=== PATIENT | female | born 1995 | race Caucasian/White ===

== ENCOUNTER 2019-11-30 03:53 | Inpatient (IN) | payer BC ==
[~2019-11-30 03:53] MED LIST: Bupivacaine 0.25% 10 ML SDV ONE
[2019-11-30] MEDS ORDERED: Calcium Carbonate 500 MG Tab.Chew PO PRN (05:42)
[2019-11-30] MEDS ORDERED: Lidocaine 1% 50 ML MDV INJECT ONE (05:42)
[2019-11-30] MEDS ORDERED: Ondansetron 4 MG/2 ML SDV IVPUSH PRN (05:42)
[2019-11-30] MEDS ORDERED: Sodium Chloride 0.9% 10 ML Syringe FLUSH PRN (05:42)
[2019-11-30] MEDS ORDERED: Acetaminophen 325 MG Tab PO PRN (05:42)
[2019-11-30] MEDS ORDERED: Oxytocin/Lactated Ringers 10 UNIT/1,000 ML BAG IV SCH ×2 (05:45)
[2019-11-30] MEDS ORDERED: Clindamycin Phosphate 900 MG in Sodium Chloride 0.9% 100 ML IV SCH (06:00)
[2019-11-30] MEDS ORDERED: Clindamycin Phosphate 900 MG/6 ML SDV ONE (06:18)
[2019-11-30] MEDS ORDERED: Sodium Chloride 0.9% 100 ML ONE (06:19)
[2019-11-30] MEDS ORDERED: Clindamycin Phosphate in D5W 900 MG in Premix Bag 1 BAG IV SCH ×2 (07:30)
[2019-11-30] MEDS: Lactated Ringers 1,000 ML IV SCH ×5 (07:41→18:00)
[2019-11-30] MEDS ORDERED: diphenhydrAMINE 50 MG/ML SDV IVPUSH PRN (07:51)
[2019-11-30] MEDS ORDERED: ePHEDrine 50 MG/ML SDV IVPUSH PRN (07:51)
--- NOTE | 2019-11-30 08:03 | PCM.PREANE ---
Preanesthetic Assessment - Procedure Proposed Procedure: raciel - Anesthesia/Transfusion/Family Hx Anesthesia History: Prior Anesthesia Reaction Type of Anesthesia Reaction: Excessive Nausea/Vomiting Family History of Anesthesia Reaction: No Transfusion History: No Prior Transfusion(s) - Review of Systems General: No Symptoms Pulmonary: Other (had cold symptoms started 2 weeks ago and now is getting over it) Cardiovascular: No Symptoms Gastrointestinal: No Symptoms Neurological: No Symptoms Other: Reports: Sinus Problem (getting over a cold) - Physical Assessment Vital Signs: Last Vital Signs Temp 98.3 F 11/30/19 04:25 Pulse 90 11/30/19 04:25 Resp 16 11/30/19 04:25 BP 133/88 11/30/19 04:25 Pulse Ox 98 11/30/19 04:25 Height: 5 ft 5 in Weight: 98.43 kg ASA Class: 2 Mental Status: Alert & Oriented x3 Airway Class: Mallampati = 2 Dentition: Reports: Normal Dentition Thyro-Mental Finger Breadths: 3 Mouth Opening Finger Breadths: 3 ROM/Head Extension: Full Lungs: Clear to Auscultation, Normal Respiratory Effort Cardiovascular: Regular Rate, Regular Rhythm - Lab Values: Laboratory Last Values WBC 9.84 K/mm3 (3.98-10.04) 11/30/19 05:56 RBC 4.07 M/mm3 (3.98-5.22) 11/30/19 05:56 Hgb 12.1 gm/dl (11.2-15.7) 11/30/19 05:56 Hct 37.1 % (34.1-44.9) 11/30/19 05:56 MCV 91.2 fl (79.4-94.8) 11/30/19 05:56 MCH 29.7 pg (25.6-32.2) 11/30/19 05:56 MCHC 32.6 g/dl (32.2-35.5) 11/30/19 05:56 RDW Std Deviation 43.4 fL (36.4-46.3) 11/30/19 05:56 Plt Count 280 K/mm3 (182-369) 11/30/19 05:56 MPV 11.0 fl (9.4-12.3) 11/30/19 05:56 Neut % (Auto) 76.6 % (34.0-71.1) H 11/30/19 05:56 Lymph % (Auto) 15.3 % (19.3-51.7) L 11/30/19 05:56 [place] % (Auto) 6.8 % (4.7-12.5) 11/30/19 05:56 Eos % (Auto) 0.6 (0.7-5.8) L 11/30/19 05:56 Baso % (Auto) 0.2 % (0.1-1.2) 11/30/19 05:56 Neut # (Auto) 7.53 K/mm3 (1.56-6.13) H 11/30/19 05:56 Lymph # (Auto) 1.51 K/mm3 (1.18-3.74) 11/30/19 05:56 [place] # (Auto) 0.67 K/mm3 (0.24-0.36) H 11/30/19 05:56 Eos # (Auto) 0.06 K/mm3 (0.04-0.36) 11/30/19 05:56 Baso # (Auto) 0.02 K/mm3 (0.01-0.08) 11/30/19 05:56 - Allergies Allergies/Adverse Reactions: Allergies Allergy/AdvReac Type Severity Reaction Status Date / Time Penicillins Allergy Rash Verified 11/30/19 04:26 - Blood Blood Available: No - Acknowledgements Anesthesia Type Planned: Epidural Pt an Appropriate Candidate for the Planned Anesthesia: Yes Alternatives and Risks of Anesthesia Discussed w Pt/Guardian: Yes Pt/Guardian Understands and Agrees with Anesthesia Plan: Yes PreAnesthesia Questionnaire Cardiovascular History: Reports: None Respiratory History: Reports: None Gastrointestinal History: Reports: GERD (with preg) 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 (39 5 weeks) Para: 0 Musculoskeletal History: Reports: None Psychiatric History: Reports: None Endocrine/Metabolic History: Reports: Obesity/BMI 30+ Oncologic (Cancer) History: Reports: None - Past Surgical History HEENT Surgical History: Reports: Oral Surgery - SUBSTANCE USE Smoking Status *Q: Never Smoker Tobacco Use Within Last Twelve Months: No Second Hand Smoke Exposure: Yes Days Per Week of Alcohol Use: 0 Recreational Drug Use History: No - HOME MEDS Home Medications: Home Meds Cholecalciferol (Vitamin D3) [Vitamin D3] 1,000 unit PO DAILY 11/30/19 [History] Loratadine [Claritin] 10 mg PO DAILY 11/30/19 [History] [place]-3/DHA/Epa/Fish Oil [[place] 3 500 Softgel] 1 each PO DAILY 11/30/19 [History ] No122/Iron/Folic Acid [ Multi Tablet] 1 each PO DAILY 11/30/19 [History] Vitamin B Complex 1 each PO DAILY 11/30/19 [History] - CURRENT (IN HOUSE) MEDS Current Meds: Current Medications Acetaminophen (Tylenol) 650 mg PO Q4H PRN PRN Reason: Pain (Mild 1-3) and fever Calcium Carbonate/Glycine (Tums) 1,000 mg PO Q2H PRN PRN Reason: Indigestion Diphenhydramine HCl (Benadryl) 25 mg IVPUSH Q6H PRN PRN Reason: pruritis Ephedrine Sulfate (Ephedrine Sulfate) 5 mg IVPUSH ASDIRECTED PRN PRN Reason: Hypotension Fentanyl (Sublimaze) 100 mcg EPIDUR Q3H PRN PRN Reason: Pain Fentanyl/Bupivacaine HCl (Fentanyl/Bupivacaine/Ns 2 Mcg-0.125% 100 Ml) 100 ml EPIDUR ASDIRECTED PRN PRN Reason: Pain Lactated Ringer's (Ringers, Lactated) 1,000 mls @ 100 mls/hr IV ASDIRECTED MARCIO Last Admin: 11/30/19 07:41 Dose: 100 mls/hr Oxytocin/Lactated Ringer's (Pitocin In Lr 10 Units/1,000 Ml) 10 unit in 1,000 mls @ 12 mls/hr IV TITRATE MARCIO; Protocol Oxytocin/Lactated Ringer's (Pitocin In Lr 10 Units/1,000 Ml) 10 unit in 1,000 mls @ 500 mls/hr IV .CONTINUOUS MARCIO Clindamycin Phosphate 900 mg/ (Premix) 50 mls @ 100 mls/hr IV Q8H MARCIO Ondansetron HCl (Zofran) 4 mg IVPUSH Q4H PRN PRN Reason: Nausea/Vomiting Sodium Chloride (Saline Flush) 10 ml FLUSH ASDIRECTED PRN PRN Reason: Keep Vein Open Discontinued Medications Clindamycin Phosphate (Cleocin) Confirm Administered Dose 900 mg .ROUTE .STK- MED ONE Stop: 11/30/19 06:19 Last Admin: 11/30/19 06:28 Dose: 900 mg Clindamycin Phosphate 900 mg/ (Sodium Chloride) 106 mls @ 100 mls/hr IV Q8H MARCIO Sodium Chloride (Normal Saline) Confirm Administered Dose 100 mls @ as directed .ROUTE .STK-MED ONE Stop: 11/30/19 06:20 Last Admin: 11/30/19 06:28 Dose: 100 mls/hr Clindamycin Phosphate 900 mg/ (Premix) 50 mls @ 100 mls/hr IV Q8H MARCIO Lidocaine HCl (Xylocaine 1%) 20 ml INJECT ONETIME ONE Stop: 11/30/19 05:43
--- NOTE | 2019-11-30 08:42 | PCM.LDHP ---
L&D History of Present Illness - General Date of Service: 11/30/19 Admit Problem/Dx: Patient Status Order with Admit Dx/Problem 11/30/19 04:26 Patient Status [ADT] Routine 11/30/19 05:43 Patient Status [ADT] Routine Admission Diagnosis/Problem Admission Diagnosis/Problem Labor established 11/30/19 08:32 There is a 24-year-old 1 para 0 white female who is presently at 39-7 weeks gestational age with an SHERIE of 11/24/2019 was admitted in early active labor with cervical change. She has dilated from closed cervix, 80% effaced soft , posterior and -2 station to 2 cm, 85% effaced, -2 station, soft. Source of Information: Patient History Limitations: Reports: No Limitations - History of Present Illness Introduction:: There is a 24-year-old 1 para 0 white female who is presently at 39-7 weeks gestational age with an SHERIE of 11/24/2019 was admitted in early active labor with cervical change.Patient seen in clinic yesterday at which time she was reporting no contractions but good activity. During the course of the night she began enmanuel and at present time is enmanuel every 3-5 minutes , moderate intensity. She is undergone cervical change as described above. She is evaluated and artificial rupture membranes is undertaken with resultant clear amniotic fluid. heart tones are reassuring and reactive NST is noted. 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 SHERIE of 12/02/2019 was returned by a last menstrual period which started on 02/25/2019 is supported by an ultrasound on 07/19/2019. Patient had menarche at age 11. Cycles were regular every 30 days. She is not using any control to time conception. Patient's first visit occurred on 06/14/2019 and was supportive of her SHERIE. She has had regular care throughout this . Her weight gain has been from 197-217 pounds for a 20 pound increase. She is group B strep positive but has a penicillin allergy and therefore we group B strep was evaluated and found to be sensitive to clindamycin which has been somewhat ordered and given in a prophylactic dosage. She had a colposcopy on 07/19/2019 which is unremarkable. This was done for Pap smear which showed ASCUS with high risk HPV. She plans to breast-feed. She wishes to have an epidural for labor analgesia. She underwent her diphtheria pertussis and tetanus immunization on . She had her flu shot on 06/28/2019. She has had her hepatitis be immunization in 1993. Her HPV immunizations occurred in 2009. Her meningococcal immunizations occurred in 2011. Laboratory testing in : Blood is positive with negative and by screen. Platelets at first visit were 332,000. Pap smear showed ASCUS changes with high risk HPV. Colposcopy was done and was unremarkable. She is rubella immune. RPR is nonreactive. Urine culture was unremarkable. Hepatitis B surface antigen and HIV assays were both negative. Chlamydia and gonorrhea assays were both negative. TSH was performed on 04/10/2019 and was normal at 1.815 mg/L. Her depression screening on 04/10/2090 was negative. Second trimester testing showed a hemoglobin of 11.8 which is mildly decreased. At that time she is advised to get on an additional iron in the form of ferrous sulfate. Platelets were 244, 000. One-hour GTT was elevated at 143. Her three-hour GTT was normal with values as follows: Fasting blood her 89. One-hour glucose 127. 2 hour glucose was 113 and 3 hour glucose was 104. Group B strep screen positive as above. Is sensitive to clindamycin as patient has a penicillin allergy. Allergies: Penicillin which causes a rash Medications: 1. vitamins 1 daily 2. Vitamin D tablets 1000 units daily 3. Vitamin B complex tabs 1 tablet/capsule daily 4. Cecil-3 1000 mg daily 5. 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 Has had a history of miscarriage and tubal . Father is alive and on medication for high blood pressure. Brother is from a developmental abnormality that causes him to live for 4 hours after . Sister is alive and well. Maternal grandmother is alive at age 81. Maternal grandfather is secondary to multiple cancers involving bone, esophagus and stomach. Internal grandmother secondary to cervical cancer and paternal grandfather is secondary to heart disease. There is no family history otherwise of cancer. No blood clotting or bleeding abnormalities anesthesia problems noted in the family. Review of systems: In general patient has no complaints. She is having contractions which are mild to moderate in intensity. Skin: Negative Lungs: No infectious symptoms or shortness of breath Cardiovascular: No chest pain or exercise intolerance Breasts: Changes associated with .. GI: Negative : Body habitus changes associated with . Musculoskeletal: Negative Neurological: Negative In general the patient is well-developed, well-nourished, pleasant female of stated age in no acute distress. Last evaluation in clinic her blood pressure is 110/70. Weight was 217 which is increased from her pregravid weight of 197. Height is 5 feet 5 inches. Prepregnancy body mass index is 32.3. Skin is warm dry without lesions. HEENT, neck and back within normal limits. Lungs are clear with good breath sounds in all lung hernandes. Cardiovascular exam shows regular and rhythm without murmurs. Breast exam is not performed at this time. Patient does plan to breast-feed. Abdomen is gravid with a fundal height of 38.5 cm. Baby in vertex presentation. Genital per digital exam as above.. Extremities and neurological exam are grossly within normal limits. - Related Data Allergies/Adverse Reactions: Allergies Allergy/AdvReac Type Severity Reaction Status Date / Time Penicillins Allergy Rash Verified 11/30/19 04:26 Home Medications: Home Meds Cholecalciferol (Vitamin D3) [Vitamin D3] 1,000 unit PO DAILY 11/30/19 [History] Loratadine [Claritin] 10 mg PO DAILY 11/30/19 [History] [place]-3/DHA/Epa/Fish Oil [[place] 3 500 Softgel] 1 each PO DAILY 11/30/19 [History ] No122/Iron/Folic Acid [ Multi Tablet] 1 each PO DAILY 11/30/19 [History] Vitamin B Complex 1 each PO DAILY 11/30/19 [History] Past Medical History Cardiovascular History: Reports: None Respiratory History: Reports: None Gastrointestinal History: Reports: GERD (with preg) 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: Musculoskeletal History: Reports: None Psychiatric History: Reports: None Endocrine/Metabolic History: Reports: Obesity/BMI 30+ Oncologic (Cancer) History: Reports: None - Past Surgical History HEENT Surgical History: Reports: Oral Surgery Social & Family History - Family History Family Medical History: Noncontributory - Tobacco Use Smoking Status *Q: Never Smoker Second Hand Smoke Exposure: Yes - Alcohol Use Days Per Week of Alcohol Use: 0 - Recreational Drug Use Recreational Drug Use: No H&P Review of Systems - Review of Systems: Review Of Systems: See Below L&D Exam - Exam Exam: See Below - Vital Signs Vital Signs: Last Vital Signs Temp 36.8 C 11/30/19 04:25 Pulse 90 11/30/19 04:25 Resp 16 11/30/19 04:25 BP 133/88 11/30/19 04:25 Pulse Ox 98 11/30/19 04:25 Weight: 98.43 kg - Patient Data Lab Results Last 24 hrs: Laboratory Results - last 24 hr 11/30/19 Range/Units 05:56 WBC 9.84 (3.98-10.04) K/mm3 RBC 4.07 (3.98-5.22) M/mm3 Hgb 12.1 (11.2-15.7) gm/dl Hct 37.1 (34.1-44.9) % MCV 91.2 (79.4-94.8) fl MCH 29.7 (25.6-32.2) pg MCHC 32.6 (32.2-35.5) g/dl RDW Std Deviation 43.4 (36.4-46.3) fL Plt Count 280 (182-369) K/mm3 MPV 11.0 (9.4-12.3) fl Neut % (Auto) 76.6 H (34.0-71.1) % Lymph % (Auto) 15.3 L (19.3-51.7) % [place] % (Auto) 6.8 (4.7-12.5) % Eos % (Auto) 0.6 L (0.7-5.8) Baso % (Auto) 0.2 (0.1-1.2) % Neut # (Auto) 7.53 H (1.56-6.13) K/mm3 Lymph # (Auto) 1.51 (1.18-3.74) K/mm3 [place] # (Auto) 0.67 H (0.24-0.36) K/mm3 Eos # (Auto) 0.06 (0.04-0.36) K/mm3 Baso # (Auto) 0.02 (0.01-0.08) K/mm3 Result Diagrams: 11/30/19 05:56 Problem List Initiated/Reviewed/Updated: Yes Orders Last 24hrs: Active Orders 24 hr Category Date Time Status Patient Status [ADT] Routine ADT 11/30/19 05:43 Active Activity as Tolerated [RC] PFP Care 11/30/19 05:43 Active Antiembolic Devices [RC] .Routine Care 11/30/19 05:44 Active Communication Order [RC] ASDIRECTED Care 11/30/19 05:43 Active Heart Tones [RC] ASDIRECTED Care 11/30/19 05:43 Active Notify Provider [RC] ASDIRECTED Care 11/30/19 07:51 Active Notify Provider [RC] PFP Care 11/30/19 05:43 Active Notify Provider [RC] PRN Care 11/30/19 05:43 Active Peripheral IV Care [RC] Q2HR Care 11/30/19 05:43 Active Pump Management, Intrathecal [RC] ASDIRECTED Care 11/30/19 05:43 Active Urinary Catheter Assessment [RC] ASDIRECTED Care 11/30/19 05:42 Active VTE/DVT Education [RC] PER UNIT ROUTINE Care 11/30/19 05:44 Active Regular Diet [DIET] Diet 11/30/19 Breakfast Active BLOOD BANK HOLD SPECIMEN [BBK] Stat Lab 11/30/19 05:42 Ordered RAPID PLASMA REAGIN,RPR [CHEM] Stat Lab 11/30/19 05:56 Received Acetaminophen [Tylenol] Med 11/30/19 05:42 Active 650 mg PO Q4H PRN Bupivacaine/fentaNYL/NS [fentaNYL/Bupivacaine/NS 2 MCG- Med 11/30/19 07:51 Active 0.125% 100 ML] 100 ml EPIDUR ASDIRECTED PRN Calcium Carbonate [Tums] Med 11/30/19 05:42 Active 1,000 mg PO Q2H PRN Clindamycin Phosphate in D5W [Cleocin in D5W] 900 mg Med 11/30/19 14:30 Active Premix Bag 1 bag IV Q8H Lactated Ringers [Ringers, Lactated] 1,000 ml Med 11/30/19 05:45 Active IV ASDIRECTED Ondansetron [Zofran] Med 11/30/19 05:42 Active 4 mg IVPUSH Q4H PRN Oxytocin/Lactated Ringers [Pitocin in LR 10 Units/1,000 Med 11/30/19 05:45 Active ML] 10 unit in 1,000 ml IV .CONTINUOUS Oxytocin/Lactated Ringers [Pitocin in LR 10 Units/1,000 Med 11/30/19 05:45 Active ML] 10 unit in 1,000 ml IV TITRATE Sodium Chloride 0.9% [Saline Flush] Med 11/30/19 05:42 Active 10 ml FLUSH ASDIRECTED PRN diphenhydrAMINE [Benadryl] Med 11/30/19 07:51 Active 25 mg IVPUSH Q6H PRN ePHEDrine [ePHEDrine sulfate] Med 11/30/19 07:51 Active 5 mg IVPUSH ASDIRECTED PRN fentaNYL [Sublimaze] Med 11/30/19 07:51 Active 100 mcg EPIDUR Q3H PRN DVT/VTE Prophylaxis Reflex [OM.PC] Routine Ot 11/30/19 05:44 Ordered Electronic Heart Tones Ext w TOCO [WOMSER] Oth 11/30/19 05:43 Ordered Routine Electronic Heart Tones Internal [WOMSER] Per Unit Oth 11/30/19 05:43 Ordered Routine Peripheral IV Insertion Adult [OM.PC] Routine Oth 11/30/19 05:43 Ordered Resuscitation Status Routine Resus Stat 11/30/19 04:26 Ordered Medication Orders Acetaminophen (Tylenol) 650 mg PO Q4H PRN PRN Reason: Pain (Mild 1-3) and fever Calcium Carbonate/Glycine (Tums) 1,000 mg PO Q2H PRN PRN Reason: Indigestion Diphenhydramine HCl (Benadryl) 25 mg IVPUSH Q6H PRN PRN Reason: pruritis Ephedrine Sulfate (Ephedrine Sulfate) 5 mg IVPUSH ASDIRECTED PRN PRN Reason: Hypotension Fentanyl (Sublimaze) 100 mcg EPIDUR Q3H PRN PRN Reason: Pain Fentanyl/Bupivacaine HCl (Fentanyl/Bupivacaine/Ns 2 Mcg-0.125% 100 Ml) 100 ml EPIDUR ASDIRECTED PRN PRN Reason: Pain Lactated Ringer's (Ringers, Lactated) 1,000 mls @ 100 mls/hr IV ASDIRECTED MARCIO Last Admin: 11/30/19 07:41 Dose: 100 mls/hr Oxytocin/Lactated Ringer's (Pitocin In Lr 10 Units/1,000 Ml) 10 unit in 1,000 mls @ 12 mls/hr IV TITRATE MARCIO; Protocol Oxytocin/Lactated Ringer's (Pitocin In Lr 10 Units/1,000 Ml) 10 unit in 1,000 mls @ 500 mls/hr IV .CONTINUOUS MARCIO Clindamycin Phosphate 900 mg/ (Premix) 50 mls @ 100 mls/hr IV Q8H MARCIO Ondansetron HCl (Zofran) 4 mg IVPUSH Q4H PRN PRN Reason: Nausea/Vomiting Sodium Chloride (Saline Flush) 10 ml FLUSH ASDIRECTED PRN PRN Reason: Keep Vein Open Assessment/Plan Comment:: 1. 39-5/7 week intrauterine , active early labor with cervical change. 2. Group B strep screen positive. Patient penicillin allergic-Group B strep sensitive to clindamycin which patient and start on prophylactically 3. Patient wishes to have epidural for labor analgesia 4. Patient has had her diphtheria/pertussis/tetanus immunization and her flu shot during the course of . She is rubella immune. 5. Patient plans to breast-feed. 6. Relatively low risk . Plan: 1. Anticipate normal spontaneous vaginal delivery 2. Epidural analgesia when necessary 3. Support breast feeding decision 4. Routine Labor care 5. CBC and RPR protocol upon admission.
[2019-11-30] MEDS: fentaNYL 100 MCG/2 ML SDV EPIDUR PRN ×2 (11:00→17:44)
[2019-11-30] MEDS: Bupivacaine/fentaNYL/NS 100 ML Bag EPIDUR PRN ×2 (11:01→18:44)
[2019-11-30] MEDS: Clindamycin Phosphate in D5W 900 MG in Premix Bag 1 BAG IV SCH ×2 (14:13)
--- NOTE | 2019-11-30 22:12 | PCM.SN ---
- Free Text/Narrative Note: Juliet is a 24-year-old 1 now para 1001 white female who is presently at 39-7 weeks gestational age with an SHERIE of 11/24/2019 who was admitted in early active labor with cervical change.Juliet progressed steadily during the course of the entire day. At approximately 2030 hrs. she became completely dilated. An epidural placed for labor and analgesia. She pushed well and at 2143 hrs. she delivered a viable, bose, female infant with Apgars of 6 and 9, a weight of 3830 g (8 pounds 7.1 ounces) and a length of 21.0 inches in the left occiput anterior position. She developed a second-degree perineal laceration. Baby was placed on mom's abdomen and nose and mouth were bulb suctioned. Baby was dried well. Pitocin was increased to 500 mL/h per protocol to facilitate increased uterine tone and decrease likelihood of bleeding. The umbilical cord had 3 vessels. Cord blood was obtained. The placenta delivered spontaneously in a Rodriguez presentation at 2152 hrs., appeared intact and complete and was discarded per patient desire. Second-degree perineal laceration was repaired with 3-0 Monocryl suture in a routine fashion. Epidural analgesia was used for perineal anesthesia. Patient had approximately 300 mL of blood loss. Patient plans to breast-feed. Condition: Good
[2019-12-01] MEDS ORDERED: Benzocaine/Menthol 20%-0.5% Spray 56 GM Canister TOP PRN (00:53)
[2019-12-01] MEDS ORDERED: Witch Hazel Medicated Pads 40/Jar TOP PRN (00:53)
[2019-12-01] MEDS ORDERED: Acetaminophen 325 MG Tab PO PRN (00:53)
[2019-12-01] MEDS ORDERED: Docusate Sodium 100 MG Cap PO PRN (00:53)
[2019-12-01] MEDS: Ibuprofen 600 MG Tab PO PRN ×4 (01:17→19:16)
[2019-12-01] MEDS: Clindamycin Phosphate in D5W 900 MG in Premix Bag 1 BAG IV SCH ×2 (05:37)
--- NOTE | 2019-12-01 08:34 | PCM48HPAN ---
Post Anesthesia Note - EVALUATION WITHIN 48HRS OF ANESTHETIC Vital Signs in Normal Range: Yes Patient Participated in Evaluation: Yes Respiratory Function Stable: Yes Airway Patent: Yes Cardiovascular Function Stable: Yes Hydration Status Stable: Yes Pain Control Satisfactory: Yes Nausea and Vomiting Control Satisfactory: Yes Mental Status Recovered: Yes Vital Signs: Last Vital Signs Temp 97.9 F 12/01/19 04:13 Pulse 78 12/01/19 04:13 Resp 14 12/01/19 04:13 BP 137/85 12/01/19 04:13 Pulse Ox 94 L 12/01/19 04:13 - COMMENTS/OBSERVATIONS Free Text/Narrative:: Patient is on her day 1. Stated understanding about possible backaches following epidural anesthesia. Mentions having some minor back soreness at this time. Explanation given about importance of avoiding back straining. Denies any headache or lightheadedness at this time. Comfortable now. Ambulating, no difficulty urinating.
[2019-12-01] MEDS: Prenatal Multivitamin with Calcium/Folic Acid/Iron Tab PO SCH (10:13)
[2019-12-02] MEDS: Ibuprofen 600 MG Tab PO PRN ×2 (03:56→11:31)
--- NOTE | 2019-12-02 07:15 | PCM.PNPP ---
- General Info Date of Service: 12/02/19 Functional Status: Reports: Pain Controlled, Tolerating Diet, Ambulating, Urinating - Review of Systems General: Reports: No Symptoms Pulmonary: Reports: No Symptoms Cardiovascular: Reports: No Symptoms Gastrointestinal: Reports: No Symptoms Genitourinary: Reports: No Symptoms Musculoskeletal: Reports: No Symptoms Neurological: Reports: No Symptoms - Patient Data Vital Signs - Most Recent: Last Vital Signs Temp 36.6 C 12/02/19 03:55 Pulse 79 12/02/19 03:55 Resp 14 12/02/19 03:55 BP 122/85 12/02/19 03:55 Pulse Ox 98 12/02/19 03:55 Weight - Most Recent: 98.43 kg I&O - Last 24 Hours: Intake & Output 12/01/19 12/02/19 12/02/19 22:59 06:59 14:59 Intake Total 60 Balance 60 Med Orders - Current: Current Medications Acetaminophen (Tylenol) 650 mg PO Q4H PRN PRN Reason: mild pain or fever Benzocaine/Menthol (Dermoplast Pain Relief [place]) 0 gm TOP ASDIRECTED PRN PRN Reason: Perineal Comfort Measure Docusate Sodium (Colace) 100 mg PO BID PRN PRN Reason: Constipation Last Admin: 12/01/19 22:37 Dose: 100 mg Ibuprofen (Motrin) 600 mg PO Q4H PRN PRN Reason: Mild pain or fever Last Admin: 12/02/19 03:56 Dose: 600 mg Prenat Multivit/Medical Case Worker/Iron/Folic Ac ( Plus Iron) 1 each PO DAILY MARCIO Last Admin: 12/01/19 10:13 Dose: 1 each Witch Berna (Tucks) 1 pad TOP ASDIRECTED PRN PRN Reason: Perineal Comfort Measure Discontinued Medications Acetaminophen (Tylenol) 650 mg PO Q4H PRN PRN Reason: Pain (Mild 1-3) and fever Last Admin: 11/30/19 17:57 Dose: 650 mg Bupivacaine HCl (Sensorcaine-Mpf 0.25%) 20 ml .ROUTE .STK-MED ONE Stop: 11/30/19 00:01 Calcium Carbonate/Glycine (Tums) 1,000 mg PO Q2H PRN PRN Reason: Indigestion Clindamycin Phosphate (Cleocin) Confirm Administered Dose 900 mg .ROUTE .STK- MED ONE Stop: 11/30/19 06:19 Last Admin: 11/30/19 06:28 Dose: 900 mg Diphenhydramine HCl (Benadryl) 25 mg IVPUSH Q6H PRN PRN Reason: pruritis Ephedrine Sulfate (Ephedrine Sulfate) 5 mg IVPUSH ASDIRECTED PRN PRN Reason: Hypotension Fentanyl (Sublimaze) 100 mcg EPIDUR Q3H PRN PRN Reason: Pain Last Admin: 11/30/19 17:44 Dose: 100 mcg Fentanyl/Bupivacaine HCl (Fentanyl/Bupivacaine/Ns 2 Mcg-0.125% 100 Ml) 100 ml EPIDUR ASDIRECTED PRN PRN Reason: Pain Last Admin: 11/30/19 18:44 Dose: 100 ml Lactated Ringer's (Ringers, Lactated) 1,000 mls @ 100 mls/hr IV ASDIRECTED MARCIO Last Admin: 11/30/19 18:00 Dose: 100 mls/hr Clindamycin Phosphate 900 mg/ (Sodium Chloride) 106 mls @ 100 mls/hr IV Q8H MARCIO Oxytocin/Lactated Ringer's (Pitocin In Lr 10 Units/1,000 Ml) 10 unit in 1,000 mls @ 12 mls/hr IV TITRATE MARCIO; Protocol Last Titration: 11/30/19 16:07 Dose: 10 munits/min, 60 mls/hr Oxytocin/Lactated Ringer's (Pitocin In Lr 10 Units/1,000 Ml) 10 unit in 1,000 mls @ 500 mls/hr IV .CONTINUOUS MARCIO Last Admin: 11/30/19 21:50 Dose: 500 mls/hr Sodium Chloride (Normal Saline) Confirm Administered Dose 100 mls @ as directed .ROUTE .STK-MED ONE Stop: 11/30/19 06:20 Last Admin: 11/30/19 06:28 Dose: 100 mls/hr Clindamycin Phosphate 900 mg/ (Premix) 50 mls @ 100 mls/hr IV Q8H MARCIO Clindamycin Phosphate 900 mg/ (Premix) 50 mls @ 100 mls/hr IV Q8H MARCIO Last Admin: 12/01/19 05:37 Dose: Not Given Lidocaine HCl (Xylocaine 1%) 20 ml INJECT ONETIME ONE Stop: 11/30/19 05:43 Last Admin: 12/01/19 05:37 Dose: Not Given Ondansetron HCl (Zofran) 4 mg IVPUSH Q4H PRN PRN Reason: Nausea/Vomiting Sodium Chloride (Saline Flush) 10 ml FLUSH ASDIRECTED PRN PRN Reason: Keep Vein Open - Infant Interaction Infant Disposition, : [place] in Room with Family Infant Interaction: Holding Feeding: Other (see below) (Bottle feeding pumped breast milk ) Support Person: Significant Other - Recovery Exam Fundal Tone: Firm Fundal Level: 2 Fingerbreadths Below Umbilicus Fundal Placement: Midline Lochia Amount: Scant Lochia Color: Rubra/Red Perineum Description: Other (see below) Other Perinuem Description: 2nd degree w repair Episiotomy/Laceration: Approximated Bladder Status: Voiding Urinary Elimination: Voided - Exam General: Alert, Oriented, Cooperative GI/Abdominal Exam: Soft, Non-Tender Extremities: Normal Inspection - Problem List & Annotations (1) Vaginal delivery SNOMED Code(s): 910289916 Code(s): O80 - ENCOUNTER FOR FULL-TERM UNCOMPLICATED DELIVERY Status: Acute Current Visit: Yes - Problem List Review Problem List Initiated/Reviewed/Updated: Yes - Assessment Assessment:: PPD#2 - Plan Plan:: * Routine cares * Bottle feeding pumped breast milk * Discharge home today
--- NOTE | 2019-12-02 07:57 | PCM.DCSUM1 ---
Discharge Summary - Discharge Data Discharge Date: 12/02/19 Discharge Disposition: Home, Self-Care 01 Condition: Good - Referral to Home Health Primary Care Physician: Noe Winston MD - Discharge Diagnosis/Problem(s) (1) Vaginal delivery SNOMED Code(s): 092237612 ICD Code: O80 - ENCOUNTER FOR FULL-TERM UNCOMPLICATED DELIVERY Status: Acute Current Visit: Yes - Patient Summary/Data Complications: None Consults: None Recommended Follow-up Testing/Procedures: Follow up in 2-3 weeks for check Hospital Course: 24 y/o at 39 5/7 wks presented in labor. She did well and underwent an uncomplicated . See delivery note. was discharged home on PPD#2 meeting all goals. - Patient Instructions Diet: Regular Diet as Tolerated Activity: As Tolerated Activity, Other: Pelvic rest for 6 weeks Driving: May Drive Today Showering/Bathing: May Shower Showering/Bathing, Other: May bathe Notify Provider of: Fever, Increased Pain, Swelling and Redness, Drainage, Nausea and/or Vomiting - Discharge Plan *PRESCRIPTION DRUG MONITORING PROGRAM REVIEWED*: No *COPY OF PRESCRIPTION DRUG MONITORING REPORT IN PATIENT LITO: No Home Medications: Home Meds No122/Iron/Folic Acid [ Multi Tablet] 1 each PO DAILY 11/30/19 [History] Docusate Sodium [Colace] 100 mg PO BID PRN cap 12/01/19 [Rx] Ibuprofen [Motrin] 600 mg PO Q4H PRN tablet 12/01/19 [Rx] Referrals: Noe Winston MD [Primary Care Provider] - (2-3 weeks for check ) - Discharge Summary/Plan Comment DC Time >30 min.: No - Patient Data Vitals - Most Recent: Last Vital Signs Temp 36.6 C 12/02/19 03:55 Pulse 79 12/02/19 03:55 Resp 14 12/02/19 03:55 BP 122/85 12/02/19 03:55 Pulse Ox 98 12/02/19 03:55 Weight - Most Recent: 98.43 kg I&O - Last 24 hours: Intake & Output 12/01/19 12/02/19 12/02/19 22:59 06:59 14:59 Intake Total 60 Balance 60 Med Orders - Current: Current Medications Acetaminophen (Tylenol) 650 mg PO Q4H PRN PRN Reason: mild pain or fever Benzocaine/Menthol (Dermoplast Pain Relief [place]) 0 gm TOP ASDIRECTED PRN PRN Reason: Perineal Comfort Measure Docusate Sodium (Colace) 100 mg PO BID PRN PRN Reason: Constipation Last Admin: 12/01/19 22:37 Dose: 100 mg Ibuprofen (Motrin) 600 mg PO Q4H PRN PRN Reason: Mild pain or fever Last Admin: 12/02/19 03:56 Dose: 600 mg Prenat Multivit/Wells/Iron/Folic Ac ( Plus Iron) 1 each PO DAILY [facility] Last Admin: 12/01/19 10:13 Dose: 1 each Witch Berna (Tucks) 1 pad TOP ASDIRECTED PRN PRN Reason: Perineal Comfort Measure Discontinued Medications Acetaminophen (Tylenol) 650 mg PO Q4H PRN PRN Reason: Pain (Mild 1-3) and fever Last Admin: 11/30/19 17:57 Dose: 650 mg Bupivacaine HCl (Sensorcaine-Mpf 0.25%) 20 ml .ROUTE .[employer] ONE Stop: 11/30/19 00:01 Calcium Carbonate/Glycine (Tums) 1,000 mg PO Q2H PRN PRN Reason: Indigestion Clindamycin Phosphate (Cleocin) Confirm Administered Dose 900 mg .ROUTE .[employer] MED ONE Stop: 11/30/19 06:19 Last Admin: 11/30/19 06:28 Dose: 900 mg Diphenhydramine HCl (Benadryl) 25 mg IVPUSH Q6H PRN PRN Reason: pruritis Ephedrine Sulfate (Ephedrine Sulfate) 5 mg IVPUSH ASDIRECTED PRN PRN Reason: Hypotension Fentanyl (Sublimaze) 100 mcg EPIDUR Q3H PRN PRN Reason: Pain Last Admin: 11/30/19 17:44 Dose: 100 mcg Fentanyl/Bupivacaine HCl (Fentanyl/Bupivacaine/Ns 2 Mcg-0.125% 100 Ml) 100 ml EPIDUR ASDIRECTED PRN PRN Reason: Pain Last Admin: 11/30/19 18:44 Dose: 100 ml Lactated Ringer's (Ringers, Lactated) 1,000 mls @ 100 mls/hr IV ASDIRECTED MARCIO Last Admin: 11/30/19 18:00 Dose: 100 mls/hr Clindamycin Phosphate 900 mg/ (Sodium Chloride) 106 mls @ 100 mls/hr IV Q8H MARCIO Oxytocin/Lactated Ringer's (Pitocin In Lr 10 Units/1,000 Ml) 10 unit in 1,000 mls @ 12 mls/hr IV TITRATE MARCIO; Protocol Last Titration: 11/30/19 16:07 Dose: 10 munits/min, 60 mls/hr Oxytocin/Lactated Ringer's (Pitocin In Lr 10 Units/1,000 Ml) 10 unit in 1,000 mls @ 500 mls/hr IV .CONTINUOUS MARCIO Last Admin: 11/30/19 21:50 Dose: 500 mls/hr Sodium Chloride (Normal Saline) Confirm Administered Dose 100 mls @ as directed .ROUTE .[email or web address]MED ONE Stop: 11/30/19 06:20 Last Admin: 11/30/19 06:28 Dose: 100 mls/hr Clindamycin Phosphate 900 mg/ (Premix) 50 mls @ 100 mls/hr IV Q8H MARCIO Clindamycin Phosphate 900 mg/ (Premix) 50 mls @ 100 mls/hr IV Q8H MARCIO Last Admin: 12/01/19 05:37 Dose: Not Given Lidocaine HCl (Xylocaine 1%) 20 ml INJECT ONETIME ONE Stop: 11/30/19 05:43 Last Admin: 12/01/19 05:37 Dose: Not Given Ondansetron HCl (Zofran) 4 mg IVPUSH Q4H PRN PRN Reason: Nausea/Vomiting Sodium Chloride (Saline Flush) 10 ml FLUSH ASDIRECTED PRN PRN Reason: Keep Vein Open
[2019-12-02] MEDS: Prenatal Multivitamin with Calcium/Folic Acid/Iron Tab PO SCH (15:35)
== END 2019-12-02 17:20 | disposition home or self-care (01) | DRG 560 ==
LOC: JD.OBCHECK 03:53 → JD.OB 03:53 → JD.OBCHECK 05:42 → JD.OB 05:43 → OBSVTOIN 21:43 → JD.OB 22:05
PROVIDERS: ADMIT Obstetrics & Gynecology; ATTEND Obstetrics & Gynecology
PROC: 10E0XZZ Delivery of Products of Conception, External Approach (ICD-10-PCS; principal; 2019-12-02)
PROC: 0KQM0ZZ Repair Perineum Muscle, Open Approach (ICD-10-PCS; 2019-12-02)
DX: O99.824 Streptococcus B carrier state complicating childbirth (principal); O70.1 Second degree perineal laceration during delivery; Z3A.39 39 weeks gestation of pregnancy; Z37.0 Single live birth
CPT/HCPCS: 36415; 51702; 59025; 59409; 85025; 86592; A9270-GY; J2590; J3010; J3490; J7050; J7120